=== PATIENT | female | born 1955 | race Caucasian/White ===

== ENCOUNTER 2021-02-24 19:46 | Emergency (ER) | payer BC, MEDICARE ==
[2021-02-24] MEDS ORDERED: Sodium Chloride 0.9% 10 ML Syringe FLUSH PRN (20:09)
[2021-02-24] MEDS ORDERED: Albuterol/Ipratropium 3.0-0.5 MG/3 ML Neb Soln NEB ONE ×2 (20:09→21:40)
[2021-02-24] MEDS ORDERED: methylPREDNISolone Sodium Succinate 125 MG/2 ML SDV IVPUSH ONE (20:09)
--- NOTE | 2021-02-24 20:09 | EDM.PDOC ---
ED HPI GENERAL MEDICAL PROBLEM - General Chief Complaint: Respiratory Problem Stated Complaint: CAN'T BREATHE, COUGH, COVID NEGATIVE Time Seen by Provider: 02/24/21 20:02 Source of Information: Reports: Patient History Limitations: Reports: Respiratory Distress - History of Present Illness INITIAL COMMENTS - FREE TEXT/NARRATIVE: Pt is here for worsening breathing and coughing spells. She has been dealing with wheezing and shortness of breath off and on for several years. She does not use a daily inhaler. She noted she was in the clinic about 2 days ago and was given a shot of steroids and an antibiotic then sent home with levaquin. She has been taking it, but did not take her dose today yet. She is here as her breathing is worse and she cannot stop wheezing and coughing. She does not wear oxygen at home. She will use steroids and antibiotics when she gets a spell. She has been COVID and flu tested and were negative. No fevers or chills. No nausea, but reports post tussive emesis at times. - Related Data Allergies Allergy/AdvReac Type Severity Reaction Status Date / Time No Known Allergies Allergy Verified 02/24/21 19:55 Home Meds: Home Meds Biotin 1 cap PO DAILY 07/29/15 [History] Bisoprolol/Hydrochlorothiazide [Ziac 2.5-6.25 MG] 1 tab PO DAILY 07/29/15 [History] Cholecalciferol (Vitamin D3) [Vitamin D3] 5,000 unit PO DAILY 07/29/15 [History] Cyanocobalamin/Folic AC/Vit B6 [Folbee] 1 tab PO DAILY 07/29/15 [History] Famotidine 20 mg PO BID 07/29/15 [History] Loratadine [Claritin] 10 mg PO DAILY 07/29/15 [History] Montelukast Sodium [Singulair] 10 mg PO DAILY 07/29/15 [History] Venlafaxine [Venlafaxine HCl ER] 150 mg PO DAILY 07/29/15 [History] Ciprofloxacin [Cipro XR 500 MG Tablet] 500 mg PO DAILY 02/24/21 [History] levoFLOXacin [Levaquin] 500 mg PO DAILY 02/24/21 [History] predniSONE [Prednisone] 20 mg PO DAILY 02/24/21 [History] ED ROS GENERAL - Review of Systems Review Of Systems: Comprehensive ROS is negative, except as noted in HPI. ED EXAM, GENERAL - Physical Exam Exam: See Below Exam Limited By: Respiratory Distress General Appearance: Alert, WD/WN, Mild Distress (due to respiratory distress) Eye Exam: Bilateral Eye: Normal Inspection Ears: Normal External Exam Nose: Normal Inspection Throat/Mouth: Normal Inspection, Normal Voice, No Airway Compromise Head: Atraumatic, Normocephalic Neck: Normal Inspection, Supple Respiratory/Chest: Respiratory Distress (mild), Decreased Breath Sounds, Wheezing, Stridor, Accessory Muscle Use, Prolonged Expiration Cardiovascular: Normal Peripheral Pulses, Regular Rate, Rhythm, No Murmur GI/Abdominal: Soft, No Distention (Female) Exam: Deferred Rectal (Female) Exam: Deferred Back Exam: Normal Inspection, Full Range of Motion Extremities: Normal Range of Motion, No Pedal Edema Neurological: Alert, Oriented, Normal Cognition, No Motor/Sensory Deficits Psychiatric: Normal Affect, Normal Mood Skin Exam: Warm, Dry, Intact, Normal Color, No Rash Lymphatic: No Adenopathy Course - Vital Signs Last Recorded V/S: Last Vital Signs Temp 98.5 F 02/24/21 19:59 Pulse 114 H 02/25/21 00:02 Resp 20 02/25/21 00:02 BP 157/100 H 02/25/21 00:02 Pulse Ox 94 L 02/25/21 00:02 - Orders/Labs/Meds Orders: Active Orders 24 hr Category Date Time Status Peripheral IV Care [RC] . DIRECTED Care 02/24/21 20:09 Active RT Aerosol Therapy [RC] ASDIRECTED Care 02/24/21 20:09 Active RT Aerosol Therapy [RC] ASDIRECTED Care 02/24/21 21:40 Active Sodium Chloride 0.9% [Saline Flush] Med 02/24/21 20:09 Active 10 ml FLUSH ASDIRECTED PRN Peripheral IV Insertion Adult [OM.PC] Stat Oth 02/24/21 20:09 Ordered Medication Orders Sodium Chloride (Sodium Chloride 0.9% 10 Ml Syringe) 10 ml FLUSH ASDIRECTED PRN PRN Reason: Keep Vein Open Last Admin: 02/24/21 20:18 Dose: 10 ml Documented by: [id number] Labs: Laboratory Tests 02/24/21 02/24/21 02/24/21 Range/Units 20:09 20:16 20:16 WBC 14.0 H (5.0-10.0) 10^3/uL RBC 4.62 (4.2-5.4) 10^6/uL Hgb 14.8 (12.0-16.0) g/dL Hct 44.4 (37.0-47.0) % MCV 96.1 (80-100) fL MCH 32.0 (27.0-34.0) pg MCHC 33.3 (33.0-35.0) g/dL Plt Count 239 (150-450) 10^3/uL Neut % (Auto) 79.9 H (42.2-75.2) % Lymph % (Auto) 10.2 L (20.5-50.1) % [place] % (Auto) 9.1 H (2-8) % Eos % (Auto) 0.6 L (1.0-3.0) % Baso % (Auto) 0.2 (0.0-1.0) % D-Dimer, Quantitative < 100 (0-400) ng/mL Sodium (136-145) mmol/L Potassium (3.5-5.1) mmol/L Chloride (98-107) mmol/L Carbon Dioxide (21-32) mmol/L Anion Gap (7-13) mEq/L BUN (7-18) mg/dL Creatinine (0.55-1.02) mg/dL Est Cr Clr Drug Dosing mL/min Estimated GFR (MDRD) BUN/Creatinine Ratio (No establ ref range) Glucose (70-99) mg/dL Calcium (8.5-10.1) mg/dL Total Bilirubin (0.2-1.0) mg/dL AST (15-37) U/L ALT (14-59) U/L Alkaline Phosphatase (46-116) U/L Total Protein (6.4-8.2) g/dL Albumin (3.4-5.0) g/dL Globulin Albumin/Globulin Ratio SARS-CoV-2 RNA (BRIAN) Negative (NEGATIVE) 02/24/21 Range/Units 20:16 WBC (5.0-10.0) 10^3/uL RBC (4.2-5.4) 10^6/uL Hgb (12.0-16.0) g/dL Hct (37.0-47.0) % MCV (80-100) fL MCH (27.0-34.0) pg MCHC (33.0-35.0) g/dL Plt Count (150-450) 10^3/uL Neut % (Auto) (42.2-75.2) % Lymph % (Auto) (20.5-50.1) % [place] % (Auto) (2-8) % Eos % (Auto) (1.0-3.0) % Baso % (Auto) (0.0-1.0) % D-Dimer, Quantitative (0-400) ng/mL Sodium 139 (136-145) mmol/L Potassium 4.1 (3.5-5.1) mmol/L Chloride 101 (98-107) mmol/L Carbon Dioxide 23 (21-32) mmol/L Anion Gap 19.1 H (7-13) mEq/L BUN 22 H (7-18) mg/dL Creatinine 1.19 H (0.55-1.02) mg/dL Est Cr Clr Drug Dosing 36.78 mL/min Estimated GFR (MDRD) 45 BUN/Creatinine Ratio 18.5 (No establ ref range) Glucose 216 H (70-99) mg/dL Calcium 9.0 (8.5-10.1) mg/dL Total Bilirubin 0.4 (0.2-1.0) mg/dL AST 27 (15-37) U/L ALT 53 (14-59) U/L Alkaline Phosphatase 89 (46-116) U/L Total Protein 7.4 (6.4-8.2) g/dL Albumin 3.8 (3.4-5.0) g/dL Globulin 3.6 Albumin/Globulin Ratio 1.1 SARS-CoV-2 RNA (BRIAN) (NEGATIVE) Meds: Medications Generic Name Dose Route Start Last Admin Trade Name Freq PRN Reason Stop Dose Admin Sodium Chloride 10 ml 02/24/21 20:09 02/24/21 20:18 Sodium Chloride 0.9% 10 Ml Syringe FLUSH 10 ml ASDIRECTED PRN Administration Keep Vein Open Discontinued Medications Generic Name Dose Route Start Last Admin Trade Name Freq PRN Reason Stop Dose Admin Albuterol/Ipratropium 3 ml 02/24/21 20:09 02/24/21 20:18 Albuterol/Ipratropium 3.0-0.5 Mg/3 Ml Neb Soln NEB 02/24/21 20:10 3 ml ONETIME ONE Administration Albuterol/Ipratropium 3 ml 02/24/21 21:40 02/24/21 21:48 Albuterol/Ipratropium 3.0-0.5 Mg/3 Ml Neb Soln NEB 02/24/21 21:41 3 ml ONETIME ONE Administration Benzonatate 100 mg 02/24/21 21:40 02/24/21 22:34 Benzonatate 100 Mg Cap PO 02/24/21 21:41 100 mg ONETIME ONE Administration Budesonide 0.5 mg 02/24/21 21:40 02/24/21 22:35 Budesonide 0.5 Mg/2 Ml Neb Susp NEB 02/24/21 21:41 0.5 mg ONETIME ONE Administration Methylprednisolone Sodium Succinate 125 mg 02/24/21 20:09 02/24/21 20:18 Methylprednisolone Sodium Succinate 125 Mg/2 Ml Sdv IVPUSH 02/24/21 20:10 125 mg ONETIME ONE Administration - Radiology Interpretation Free Text/Narrative:: PROCEDURE INFORMATION: Exam: CT Chest Without Contrast; Diagnostic Exam date and time: 02/24/2021 10:19 PM Age: 65 years old Clinical indication: Cough and shortness of breath and wheezing; Additional info: Wheezing, shortness of breath, cough, covid negati TECHNIQUE: Imaging protocol: Diagnostic computed tomography of the chest without contrast. Radiation optimization: All CT scans at this facility use at least one of these dose optimization techniques: automated exposure control; mA and/or kV adjustment per patient size (includes targeted exams where dose is matched to clinical indication); or iterative reconstruction. COMPARISON: No relevant prior studies available. FINDINGS: Lungs: Nonspecific nodule in the lateral segment of the right middle lobe measuring 3 mm. See series 3, image 28. This is noncalcified and rounded. This is likely a small granuloma.. No consolidation. No masses. Pleural spaces: Unremarkable. No pneumothorax. No pleural effusion. Heart: Unremarkable. No cardiomegaly. No pericardial effusion. Aorta: Unremarkable. No aortic aneurysm. Lymph nodes: Unremarkable. No enlarged lymph nodes. Bones/joints: Unremarkable. No acute fracture. Soft tissues: Unremarkable. IMPRESSION: 1. No acute findings. 2. Clear lungs and pleural space bilaterally. 3. Normal heart size. 4. Thoracic aorta is unremarkable. 5. Previous Imani-en-Y bariatric bypass surgery. 6. Severe pancreatic atrophy. 7. Previous cholecystectomy. 8. 3 mm rounded noncalcified nodule in the lateral segment of the right middle lobe. See series 3, image 28. For patients at low risk (minimal or absent history of smoking and of other known risk factors), no routine follow-up is indicated. For patients at high risk (history of smoking or of other known risk factors), consider optional CT Chest at 12 months. (Reference: Bertha) REFERENCES: Bertha Luevano, et al. Guidelines for Management of Incidental Pulmonary Nodules Detected on CT Images: From the Fleischner Society 2017. Radiology. 2017;284(1):228-243. Thank you for allowing us to participate in the care of your patient. Dictated and Authenticated by: Vijay Lewis MD - Re-Assessments/Exams Free Text/Narrative Re-Assessment/Exam: Reviewed labs and CT results. Discussed talking to her PCP about a potential referral to pulmonology for further evaluation. continue the levaquin, will start on prednisone. Pt verbalized understanding. 02/25/21 00:26 Departure - Departure Time of Disposition: 00:27 Disposition: Home, Self-Care 01 Condition: Fair Clinical Impression: Cough, Wheezing, Incidental lung nodule, less than or equal to 3mm - Discharge Information *PRESCRIPTION DRUG MONITORING PROGRAM REVIEWED*: Not Applicable *COPY OF PRESCRIPTION DRUG MONITORING REPORT IN PATIENT JARROD: Not Applicable Instructions: Shortness of Breath, Adult, [id number], Cough, Adult, [id number] Forms: ED Department Discharge Additional Instructions: Continue taking your antibiotics from your PCP Start prednisone 40 mg daily for 5 days If your symptoms worsen, call/return to the ER Follow up with your PCP in 2-3 days Sepsis Event Note (ED) - Focused Exam Vital Signs: Vital Signs Temp Pulse Resp BP Pulse Ox 02/25/21 00:02 114 H 20 157/100 H 94 L 02/24/21 19:59 98.5 F 89 26 H 141/121 H 96 - My Orders Last 24 Hours: My Active Orders 02/24/21 20:09 Peripheral IV Care [RC] . DIRECTED RT Aerosol Therapy [RC] ASDIRECTED Sodium Chloride 0.9% [Saline Flush] 10 ml FLUSH ASDIRECTED PRN Peripheral IV Insertion Adult [OM.PC] Stat 02/24/21 21:40 RT Aerosol Therapy [RC] ASDIRECTED - Assessment/Plan Last 24 Hours: My Active Orders 02/24/21 20:09 Peripheral IV Care [RC] . DIRECTED RT Aerosol Therapy [RC] ASDIRECTED Sodium Chloride 0.9% [Saline Flush] 10 ml FLUSH ASDIRECTED PRN Peripheral IV Insertion Adult [OM.PC] Stat 02/24/21 21:40 RT Aerosol Therapy [RC] ASDIRECTED
[2021-02-24 20:39] LABS: ANION GAP 19.1 mEq/L (7-13)
[2021-02-24] MEDS ORDERED: Benzonatate 100 MG Cap PO ONE (21:40)
[2021-02-24] MEDS ORDERED: Budesonide 0.5 MG/2 ML Neb Susp NEB ONE (21:40)
[2021-02-25 00:03] VITALS: BP 157/100; PULSE 114
--- NOTE | 2021-02-25 00:12 | CT ---
PROCEDURE INFORMATION: Exam: CT Chest Without Contrast; Diagnostic Exam date and time: 02/24/2021 10:19 PM Age: 65 years old Clinical indication: Cough and shortness of breath and wheezing; Additional info: Wheezing, shortness of breath, cough, covid negati TECHNIQUE: Imaging protocol: Diagnostic computed tomography of the chest without contrast. Radiation optimization: All CT scans at this facility use at least one of these dose optimization techniques: automated exposure control; mA and/or kV adjustment per patient size (includes targeted exams where dose is matched to clinical indication); or iterative reconstruction. COMPARISON: No relevant prior studies available. FINDINGS: Lungs: Nonspecific nodule in the lateral segment of the right middle lobe measuring 3 mm. See series 3, image 28. This is noncalcified and rounded. This is likely a small granuloma.. No consolidation. No masses. Pleural spaces: Unremarkable. No pneumothorax. No pleural effusion. Heart: Unremarkable. No cardiomegaly. No pericardial effusion. Aorta: Unremarkable. No aortic aneurysm. Lymph nodes: Unremarkable. No enlarged lymph nodes. Bones/joints: Unremarkable. No acute fracture. Soft tissues: Unremarkable. IMPRESSION: 1. No acute findings. 2. Clear lungs and pleural space bilaterally. 3. Normal heart size. 4. Thoracic aorta is unremarkable. 5. Previous Imani-en-Y bariatric bypass surgery. 6. Severe pancreatic atrophy. 7. Previous cholecystectomy. 8. 3 mm rounded noncalcified nodule in the lateral segment of the right middle lobe. See series 3, image 28. For patients at low risk (minimal or absent history of smoking and of other known risk factors), no routine follow-up is indicated. For patients at high risk (history of smoking or of other known risk factors), consider optional CT Chest at 12 months. (Reference: Bertha) REFERENCES: Bertha Luevano et al. Guidelines for Management of Incidental Pulmonary Nodules Detected on CT Images: From the Fleischner Society 2017. Radiology. 2017;284(1):228-243.
== END 2021-02-25 00:43 | disposition home or self-care (01) ==
LOC: DL.ED 19:46
DX: R05.9 Cough, unspecified (principal); R06.2 Wheezing; R91.1 Solitary pulmonary nodule; Z20.822 Contact with and (suspected) exposure to COVID-19
CPT/HCPCS: 36415; 71250; 80053; 85025; 85379; 87635; 94640; 96374; 99285; A9270; J2930; J7620-GY; U0002